=== PATIENT | male | born 1955 | race African-American/Black ===

== ENCOUNTER 2021-03-05 08:11 | Inpatient (IN) | payer MEDICARE, OTHER ==
[~2021-03-05] VITALS: Ht 154.9 cm; Wt 68.9 kg
[2021-03-05 09:10] LABS: HEMATOCRIT. 30.2 % (42.0-52.0); HEMOGLOBIN. 10.1 g/dL (14.0-18.0); MEAN CORPUSCULAR HEMOGLOBIN 31.6 pg (28.0-32.0); MEAN CORPUSCULAR VOLUME 94.3 fL (80.0-94.0); MEAN PLATELET VOLUME 8.5 fl (7.4-10.4); PLATELET 261 x1000/uL (130-400); RED BLOOD CELL COUNT 3.21 mill/uL (4.7-6.1); RED CELL DISTRIBUTION WIDTH 13.5 % (11.6-14.6)
[2021-03-05 09:16] LABS: CHLORIDE 105 mEq/L (98-107)
[2021-03-05 09:20] LABS: INR 1.2; PROTHROMBIN TIME 12.7 sec (9.6-11.0)
[2021-03-05 10:22] LABS: CLARITY URINE CLOUDY (CLEAR); COLOR URINE YELLOW (YELLOW); KETONES URINE TRACE (NEGATIVE); LEUKOCYTE ESTERASE URINE 1+ (NEGATIVE); NITRITE URINE POSITIVE (NEGATIVE); OCCULT BLOOD URINE 3+ (NEGATIVE); PH URINE 5.5 (4.5-8.0); PROTEIN URINE 1+ (NEGATIVE); SPECIFIC GRAVITY URINE 1.023 (1.005-1.030)
[2021-03-05] MEDS ORDERED: LEVOFLOXACIN 750MG PREMIX 150 ML IV ONE (10:30)
[2021-03-05 14:46] LABS: PLATELET ESTIMATE NORMAL
[2021-03-05] MEDS ORDERED: ACETAMINOPHEN 325MG TABLET PO PRN (16:30)
[2021-03-05] MEDS ORDERED: LORAZEPAM 2MG/ML CPJ IV PRN (16:30)
[2021-03-05] MEDS ORDERED: GUAIFENESIN 200MG/10ML SUGAR FREE UDC PO PRN (16:30)
[2021-03-05] MEDS ORDERED: ONDANSETRON HCL 4MG/2ML INJ IV PRN (16:30)
[2021-03-05] MEDS ORDERED: MAGNESIUM/ALUMINUM HYDROXIDE/SIMETHICONE 30ML UDC PO PRN (16:30)
[2021-03-05] MEDS ORDERED: DOCUSATE SODIUM 100MG CAPSULE PO PRN (16:30)
[2021-03-05] MEDS ORDERED: LEVOFLOXACIN 500MG PREMIX 100 ML IV SCH (16:30)
[2021-03-05] MEDS ORDERED: CLONIDINE 0.1MG TABLET PO PRN (16:30)
[2021-03-05] MEDS: ENOXAPARIN 40MG/0.4ML SYR SUBCUT SCH (18:05)
[2021-03-05] MEDS ORDERED: ZOLPIDEM TARTRATE 5MG TABLET PO PRN (19:00)
[2021-03-05] MEDS: BENZTROPINE MESYLATE 1MG TABLET PO SCH (22:50)
[2021-03-05] MEDS: DIVALPROEX SODIUM 500MG DR TABLET PO SCH (22:50)
[2021-03-05] MEDS: HALOPERIDOL 5MG TABLET PO SCH (22:50)
[2021-03-05] MEDS: RISPERIDONE 1MG TABLET PO SCH (22:51)
[2021-03-06] MEDS: SODIUM CHLORIDE 0.9% 1,000 ML IV SCH ×3 (00:44→18:44)
[2021-03-06 06:30] LABS: BASOPHILS % 0.3 % (0.0-2.0); EOSINOPHILS % 1.1 % (0.0-5.0); HEMOGLOBIN. 10.4 g/dL (14.0-18.0); LYMPHOCYTES % 13.4 % (20.0-50.0); MEAN CORPUSCULAR HEMOGLOBIN 31.7 pg (28.0-32.0); MEAN CORPUSCULAR VOLUME 94.7 fL (80.0-94.0); MEAN PLATELET VOLUME 9.4 fl (7.4-10.4); MONOCYTES % 13.9 % (2.0-8.0); NEUTROPHILS % 71.3 % (40.0-76.0); PLATELET 275 x1000/uL (130-400); RED BLOOD CELL COUNT 3.27 mill/uL (4.7-6.1)
[2021-03-06] MEDS: CARVEDILOL 12.5MG TABLET PO SCH ×2 (06:58→18:39)
[2021-03-06] MEDS: LEVOTHYROXINE SODIUM 25MCG TABLET PO SCH (06:58)
[2021-03-06 10:00] VITALS: BP 116/51
[2021-03-06] MEDS: RISPERIDONE 1MG TABLET PO SCH ×2 (10:41→20:29)
[2021-03-06] MEDS: BENZTROPINE MESYLATE 1MG TABLET PO SCH ×2 (10:41→20:29)
[2021-03-06] MEDS: DIVALPROEX SODIUM 500MG DR TABLET PO SCH ×2 (10:41→20:29)
[2021-03-06] MEDS: ASPIRIN 81MG EC TABLET PO SCH (10:41)
[2021-03-06 12:00] VITALS: BP 116/51
[2021-03-06 15:09] LABS: CHLORIDE 106 mEq/L (98-107)
[2021-03-06 16:00] VITALS: BP 98/55
[2021-03-06] MEDS: ENOXAPARIN 40MG/0.4ML SYR SUBCUT SCH (18:41)
[2021-03-06 20:00] VITALS: BP 112/33
[2021-03-06] MEDS: HALOPERIDOL 5MG TABLET PO SCH (20:29)
[2021-03-07] VITALS: BP 105/62
[2021-03-07 04:00] VITALS: BP 114/59
[2021-03-07] MEDS: CARVEDILOL 12.5MG TABLET PO SCH ×2 (06:21→17:35)
[2021-03-07] MEDS: LEVOTHYROXINE SODIUM 25MCG TABLET PO SCH (06:21)
[2021-03-07 08:00] VITALS: BP 107/56
[2021-03-07] MEDS: ASPIRIN 81MG EC TABLET PO SCH (08:40)
[2021-03-07] MEDS: DIVALPROEX SODIUM 500MG DR TABLET PO SCH ×2 (08:40→21:44)
[2021-03-07] MEDS: RISPERIDONE 1MG TABLET PO SCH ×2 (08:40→21:44)
[2021-03-07] MEDS: BENZTROPINE MESYLATE 1MG TABLET PO SCH ×2 (08:40→21:44)
[2021-03-07] MEDS ORDERED: LEVOFLOXACIN 750MG PREMIX 150 ML IV SCH (11:00)
[2021-03-07 12:00] VITALS: BP 104/61
[2021-03-07 16:00] VITALS: BP 120/59
[2021-03-07] MEDS: SODIUM CHLORIDE 0.9% 1,000 ML IV SCH (17:36)
[2021-03-07] MEDS: ENOXAPARIN 40MG/0.4ML SYR SUBCUT SCH (17:36)
[2021-03-07 20:00] VITALS: BP 119/54
[2021-03-07] MEDS: HALOPERIDOL 5MG TABLET PO SCH (21:44)
[2021-03-08] VITALS (7 sets, daily range): BP systolic 99–126; BP diastolic 49–68
[2021-03-08] MEDS: LEVOTHYROXINE SODIUM 25MCG TABLET PO SCH (06:20)
[2021-03-08] MEDS: CARVEDILOL 12.5MG TABLET PO SCH ×2 (06:20→17:40)
[2021-03-08] MEDS: RISPERIDONE 1MG TABLET PO SCH ×2 (09:13→21:22)
[2021-03-08] MEDS: DIVALPROEX SODIUM 500MG DR TABLET PO SCH ×2 (09:13→21:22)
[2021-03-08] MEDS: ASPIRIN 81MG EC TABLET PO SCH (09:13)
[2021-03-08] MEDS: BENZTROPINE MESYLATE 1MG TABLET PO SCH ×2 (09:13→21:22)
[2021-03-08] MEDS: ENOXAPARIN 40MG/0.4ML SYR SUBCUT SCH (17:40)
[2021-03-08] MEDS: HALOPERIDOL 5MG TABLET PO SCH (21:23)
[2021-03-09] VITALS: BP 119/51
== END 2021-03-09 01:12 | disposition home or self-care (01) | DRG 872 ==
LOC: ER 08:11 → MICUSO 12:54 → 8WST 03-06 07:25
PROVIDERS: ADMIT Hospitalist; ATTEND Hospitalist
DX: A41.9 Sepsis, unspecified organism (principal); N17.9 Acute kidney failure, unspecified; N39.0 Urinary tract infection, site not specified; Z20.822 Contact with and (suspected) exposure to COVID-19; E78.5 Hyperlipidemia, unspecified; F20.9 Schizophrenia, unspecified; I10 Essential (primary) hypertension; R26.81 Unsteadiness on feet
CPT/HCPCS: 36415; 71045; 80053; 80061; 81003; 82550; 83605; 84145; 84484; 85025; 87077; 87186; 87426; 93005; 93970; 97162; 99285; J1630; J1650; J1956; J2060; J7030